=== PATIENT | female | born 1975 | race Caucasian/White ===

== ENCOUNTER 2022-07-20 16:56 | Emergency (ER) | payer SELFPAY ==
[~2022-07-20] VITALS: Ht 165.1 cm; Wt 82.0 kg
[2022-07-20] MEDS ORDERED: IBUPROFEN 400MG TABLET PO ONE (17:45)
[2022-07-20] MEDS ORDERED: HYDR-4001 MT ×2 (18:07→19:59)
[2022-07-20] MEDS ORDERED: IBUP-2028 MT ×2 (18:07→19:59)
[2022-07-20 18:45] VITALS: BP 155/72
== END 2022-07-20 18:46 | disposition home or self-care (01) ==
LOC: ER 16:56
DX: M76.61 Achilles tendinitis, right leg (principal); M77.31 Calcaneal spur, right foot; E11.9 Type 2 diabetes mellitus without complications
CPT/HCPCS: 73630; 99283

== ENCOUNTER 2022-09-27 12:03 | Emergency (ER) | payer MEDICAID ==
[~2022-09-27] VITALS: Ht 165.1 cm; Wt 86.2 kg
[~2022-09-27 12:03] MED LIST: HYDR-4001 MT; IBUP-2028 MT
[2022-09-27 12:19] VITALS: BP 136/71
[2022-09-27 13:02] LABS: BASOPHILS % 0.4 % (0.0-2.0); EOSINOPHILS % 2.1 % (0.0-5.0); HEMATOCRIT. 37.6 % (36.0-48.0); HEMOGLOBIN. 12.6 g/dL (12.0-16.0); LYMPHOCYTES % 37.7 % (20.0-50.0); MEAN CORPUSCULAR HEMOGLOBIN 31.3 pg (28.0-32.0); MEAN CORPUSCULAR VOLUME 93.1 fL (81.0-99.0); MONOCYTES % 6.7 % (2.0-8.0); NEUTROPHILS % 53.1 % (40.0-76.0); PLATELET 303 x1000/uL (130-400); RED BLOOD CELL COUNT 4.04 mill/uL (4.2-5.4); RED CELL DISTRIBUTION WIDTH 13.7 % (11.6-14.6)
[2022-09-27 13:15] LABS: CHLORIDE 104 mEq/L (98-107)
[2022-09-27 13:44] LABS: CLARITY URINE CLEAR (CLEAR); COLOR URINE YELLOW (YELLOW); KETONES URINE NEGATIVE (NEGATIVE); LEUKOCYTE ESTERASE URINE NEGATIVE (NEGATIVE); NITRITE URINE NEGATIVE (NEGATIVE); OCCULT BLOOD URINE NEGATIVE (NEGATIVE); PH URINE 5.5 (4.5-8.0); PROTEIN URINE NEGATIVE (NEGATIVE); SPECIFIC GRAVITY URINE 1.008 (1.005-1.030); UROBILINOGEN URINE 0.2 E.U./dL (0.2-1.0)
== END 2022-09-27 16:52 | disposition home or self-care (01) ==
LOC: ER 12:53
DX: R30.0 Dysuria (principal); N89.8 Other specified noninflammatory disorders of vagina; E11.9 Type 2 diabetes mellitus without complications; Z98.890 Other specified postprocedural states
CPT/HCPCS: 36415; 80053; 81003; 81025; 85025; 87210; 99284

== ENCOUNTER 2023-12-02 12:11 | Emergency (ER) | payer MEDICAID ==
[~2023-12-02] VITALS: Ht 167.6 cm; Wt 91.0 kg
[2023-12-02 12:24] VITALS: O2SAT 96
[2023-12-02 13:05] LABS: CALCIUM 10.1 mg/dL (8.7-10.4); CARBON DIOXIDE 25 mEq/L (21-32); CHLORIDE 103 mEq/L (98-107); POTASSIUM 3.7 mEq/L (3.5-5.1); SODIUM 135 mEq/L (136-145)
[2023-12-02 13:10] LABS: CREATININE 0.7 mg/dL (0.6-1.0)
[2023-12-02 13:11] LABS: UREA NITROGEN BLOOD 9 mg/dL (9-23)
[2023-12-02 13:17] LABS: GLUCOSE 417 mg/dL (70-105)
[2023-12-02 13:33] LABS: BASOPHILS % 0.5 % (0.0-2.0); EOSINOPHILS % 0.8 % (0.0-5.0); HEMATOCRIT. 40.5 % (36.0-48.0); HEMOGLOBIN. 13.4 g/dL (12.0-16.0); LYMPHOCYTES % 25.8 % (20.0-50.0); MEAN CORPUSCULAR HEMOGLOBIN 31.1 pg (28.0-32.0); MEAN CORPUSCULAR HGB CONC 33.2 g/dL (31.0-37.0); MEAN CORPUSCULAR VOLUME 93.7 fL (81.0-99.0); MEAN PLATELET VOLUME 8.8 fl (7.4-10.4); MONOCYTES % 4.1 % (2.0-8.0); NEUTROPHILS % 68.8 % (40.0-76.0); PLATELET 301 x1000/uL (130-400); RED BLOOD CELL COUNT 4.32 mill/uL (4.2-5.4); RED CELL DISTRIBUTION WIDTH 13.8 % (11.6-14.6)
[2023-12-02] MEDS ORDERED: ACETAMINOPHEN WITH CODEINE 300/30MG TABLET PO ONE (15:15)
[2023-12-02] MEDS: METFORMIN HCL 500MG TABLET PO ONE (16:17)
[2023-12-02] MEDS: SODIUM CHLORIDE 0.9% 1,000 ML IV ONE (16:18)
[2023-12-02] MEDS: ACETAMINOPHEN WITH CODEINE 300/30MG TABLET PO NR (16:18)
[2023-12-02 19:34] VITALS: BP 148/89; PULSE 98; RESP 18; TEMP 36.94740; O2SAT 96
== END 2023-12-02 19:34 | disposition home or self-care (01) ==
LOC: ER 12:49
DX: E11.65 Type 2 diabetes mellitus with hyperglycemia (principal); Z98.890 Other specified postprocedural states; W01.0XXA Fall on same level from slipping, tripping and stumbling without subsequent striking against object, initial encounter; Y93.89 Activity, other specified; Y92.89 Other specified places as the place of occurrence of the external cause; Y99.8 Other external cause status
CPT/HCPCS: 36415; 72100; 80048; 85025; 96360; 96361; 99284